=== PATIENT | female | born 1990 | race African-American/Black ===

== ENCOUNTER 2018-09-01 11:55 | Emergency (ER) | payer OTHER ==
[2018-09-01] MEDS ORDERED: ACETAMINOPHEN SOLN 325 MG/10.15 ML UDCUP PO ONE (12:54)
[2018-09-01] MEDS ORDERED: DEXAMETHASONE SOD PHOS INJ 10 MG/1 ML VIAL IM ONE (12:54)
--- NOTE | 2018-09-01 12:57 | ER Document Report ---
HPI - HPI Time Seen by Provider: 09/01/18 12:14 Pain Level: 5 Notes: Patient is an otherwise healthy 19-year-old female who presents the emergency department chief complaint of sore throat. Patient reports her throat has been hurting for at least 3 days. Patient denies any other symptoms to include fever, nausea, vomiting, diarrhea or congestion. - CONSTITUTIONAL Constitutional: REPORTS: Chills - EENT EENT: REPORTS: Sore Throat, Ear Pain - right ear - REPRODUCTIVE Reproductive: DENIES: : Past Medical History - General Information source: Patient - Social History Smoking Status: Never Smoker Frequency of alcohol use: None Drug Abuse: None Family History: Reviewed & Not Pertinent Patient has suicidal ideation: No Patient has homicidal ideation: No Renal/ Medical History: Denies: Hx Peritoneal Dialysis Vertical Provider Document - CONSTITUTIONAL Notes: GENERAL: Alert, interacts well. No distress. HEAD: Normocephalic, atraumatic. EYES: Pupils equal, round, and reactive to light. Extraocular movements intact. ENT: Oral mucosa moist, tongue midline. Oropharynx unremarkable, uvula normal, airway patent. Nares patent with mild nasal congestion, septum unremarkable, TMs normal, ear canals are normal. NECK: Trachea midline. No lymphadenopathy. LUNGS: Clear to auscultation bilaterally, no wheezes, rales, or rhonchi. No respiratory distress. Rare mild congested cough. HEART: Regular rate and rhythm. No murmur. Normal distal pulses and cap refill. ABDOMEN: Soft, non-tender. Non-distended. Bowel sounds present in all 4 quadrants. EXTREMITIES: Moves all 4 extremities spontaneously. No edema. No cyanosis. BACK: no cervical, thoracic, lumbar midline tenderness. No signs of trauma. NEUROLOGICAL: Alert, interactive, age appropriate verbal. SKIN: Warm, dry, normal turgor. No rashes or lesions noted. - INFECTION CONTROL TRAVEL OUTSIDE OF THE [place] IN LAST 30 DAYS: No Course - Re-evaluation Re-evalutation: 09/01/18 12:55 Rapid strep is negative. Patient will be given IM Decadron and p.o. Tylenol. - Vital Signs Vital signs: Temp Pulse Resp BP Pulse Ox 99.8 F 93 18 130/75 H 100 09/01/18 12:07 09/01/18 12:07 09/01/18 12:07 09/01/18 12:07 09/01/18 12:07 Discharge - Discharge Clinical Impression: Viral pharyngitis Condition: Stable Disposition: HOME, SELF-CARE Additional Instructions: SORE THROAT: Sore throats may be caused by viruses, bacteria, or fungi. Most are due to a virus, and must get better on their own. Bacterial sore throats, particularly those due to "strep," need treatment with antibiotics. If an antibiotic is prescribed, be sure to take the medication for a full 10 days. Failure to take the antibiotic can result in complications such as rheumatic fever. Sometimes, an injection of antibiotics is given instead of pills or liquid. This single "shot" is equal in effectiveness to the oral medication. To relieve symptoms, take acetaminophen for pain. Sip clear liquids frequently, or eat popsicles or ice chips. Anesthetic sprays or lozenges may help. Make sure the air in the room is not too dry. Avoid using decongestants or antihistamines. Call the doctor if there is no improvement in two days, or if you have difficulty breathing, increasing throat pain, high fever, rash, or frequent vomiting. STEROID MEDICATION: You have been given a medicine of the cortisone/steroid class. This medication is used to control inflammation or allergy. It is usually only given for a short period of time, until the acute process subsides. There are usually no side effects from short-term use of cortisone-like medications. Some persons feel an increased sense of well-being and are not sleepy at bedtime. Long-term use of cortisone medications is best avoided, unless required for a severe condition. If your condition does not remit, or relapses after the course of corticosteroid medication, you should consult your physician. FOLLOW-UP CARE: If you have been referred to a physician for follow-up care, call the physicians office for an appointment as you were instructed or within the next two days. If you experience worsening or a significant change in your symptoms, notify the physician immediately or return to the Emergency Department at any time for re-evaluation. Your rapid strep test today was negative. A throat culture will be sent. Someone will call you in the next 2-3 days if this is positive. In the meanwhile please use ibuprofen and/or Tylenol for any pain or inflammation. Drink beverages that will help soothe your throat. You may want to consider drinking some hot tea with honey. Return to the emergency department if you experience worsening symptoms and you are unable to swallow. Referrals: LAYNE LALA MD [Primary Care Provider] - Follow up as needed
[2018-09-01 13:05] VITALS: BP 139/86
== END 2018-09-01 13:07 | disposition home or self-care (01) ==
LOC: EDBD 11:55 → ER 11:55
DX: J02.8 Acute pharyngitis due to other specified organisms (principal); B97.89 Other viral agents as the cause of diseases classified elsewhere; H92.01 Otalgia, right ear; R09.81 Nasal congestion
CPT/HCPCS: 99283; 96372; 87070; 87880; 87077; J1100; J3490

== ENCOUNTER 2018-09-09 19:09 | Emergency (ER) | payer OTHER ==
--- NOTE | 2018-09-09 19:56 | ER Document Report ---
ED Medical Screen (RME) - General TRAVEL OUTSIDE OF THE [place] IN LAST 30 DAYS: No - General Chief Complaint: Lower Abdominal Pain Stated Complaint: LOWER ABDOMINAL PAIN/VAGINAL DISCHARGE Time Seen by Provider: 09/09/18 19:54 Primary Care Provider: LAYNE LALA MD [Primary Care Provider] - Follow up as needed Notes: 27 years old female presents today with vaginal discharge which is yellow white in color. And lower abdominal discomfort. ([facility] SARGENT) - Related Data Allergies/Adverse Reactions: No Known Allergies Allergy (Verified 09/09/18 19:12) Past Medical History Renal/ Medical History: Denies: Hx Peritoneal Dialysis - Vital signs Vitals: Temp Pulse Resp BP Pulse Ox 98.3 F 77 20 119/59 L 100 09/09/18 19:47 09/09/18 19:47 09/09/18 19:47 09/09/18 19:47 09/09/18 19:47 - Vital Signs Vital signs: Temp Pulse Resp BP Pulse Ox 98.3 F 77 20 119/59 L 100 09/09/18 19:47 09/09/18 19:47 09/09/18 19:47 09/09/18 19:47 09/09/18 19:47 - Laboratory Laboratory results interpreted by me: 09/09/18 21:09 Urine Protein 30 H Urine Urobilinogen 4.0 H Ur Leukocyte Esterase LARGE H Doctor's Discharge - Discharge Clinical Impression: Pelvic pain, Vaginal discharge Condition: Stable Disposition: HOME, SELF-CARE Additional Instructions: You are being treated for both pelvic infection and bacterial vaginosis. Complete treatment for bacterial vaginosis by taking the Flagyl as prescribed. Avoid sexual intercourse for 1 week. Any current partner also needs to be treated. Return if you worsen including fever, vomiting, severe worsening pain, or any other concerning symptoms. Prescriptions: Metronidazole [Flagyl 500 mg Tablet] 500 mg PO BID 7 Days #14 tablet Forms: Return to Work Referrals: LAYNE LALA MD [Primary Care Provider] - Follow up as needed
[2018-09-09 22:04] LABS: APPEARANCE,URINE CLOUDY; BILIRUBIN,URINE NEGATIVE (NEGATIVE); COLOR,URINE YELLOW; GLUCOSE, URINE NEGATIVE (NEGATIVE); KETONES,URINE NEGATIVE (NEGATIVE); LEUKOCYTE ESTERASE,URINE LARGE (NEGATIVE); NITRITE,URINE NEGATIVE (NEGATIVE); PROTEIN,URINE 30 mg/dL (NEGATIVE)
[2018-09-09 23:56] LABS: T.VAGINALIS (WET MOUNT) NO TRICHOMONAS SEEN
[2018-09-09 23:58] LABS: WBCS (WET MOUNT) 3+ WBCS SEEN; YEAST (WET MOUNT) NO YEAST SEEN
[2018-09-09 23:59] LABS: BACTERIA (WET MOUNT) 3+ BACTERIA SEEN; RBCS (WET MOUNT) NO RBCS SEEN
[2018-09-10] MEDS ORDERED: ONDANSETRON 4 MG TAB.RAPDIS PO ONE (00:09)
[2018-09-10] MEDS ORDERED: LIDOCAINE 1% INJ-PF (10 MG/ML) 30 ML SDV INJ ONE (00:09)
[2018-09-10] MEDS ORDERED: AZITHROMYCIN 250 MG TABLET PO ONE (00:09)
[2018-09-10] MEDS ORDERED: CEFTRIAXONE INJ 250 MG VIAL IM ONE (00:30)
[2018-09-10 00:52] VITALS: BP 116/63
[2018-09-10 01:47] LABS: CHLAM PCR NOT DETECTED (NOT DETECT); GON PCR NOT DETECTED (NOT DETECT)
--- NOTE | 2018-09-10 06:25 | ER Document Report ---
ED GI/ - General Chief Complaint: Lower Abdominal Pain Stated Complaint: LOWER ABDOMINAL PAIN/VAGINAL DISCHARGE Time Seen by Provider: 09/09/18 19:54 Primary Care Provider: LAYNE LALA MD [Primary Care Provider] - Follow up as needed Notes: Patient is a 27 year old female that comes to the Emergency Department for chief complaint of pelvic cramping and vaginal discharge for the past several days. Denies fever or chills. Reports a little bit of nausea but denies vomiting. She denies vaginal bleeding. States she had a positive home test although this was not definite. She states she might have been exposed to an STD and she was to be checked. She denies any daily medications. She has had 4 vaginal deliveries, denies any medical history otherwise. TRAVEL OUTSIDE OF THE [place] IN LAST 30 DAYS: No - Related Data Allergies/Adverse Reactions: No Known Allergies Allergy (Verified 09/09/18 19:12) Past Medical History - General Information source: Patient - Social History Smoking Status: Never Smoker Frequency of alcohol use: Rare Drug Abuse: None Lives with: Family Family History: Reviewed & Not Pertinent Patient has suicidal ideation: No Patient has homicidal ideation: No - Medical History Medical History: Negative Renal/ Medical History: Denies: Hx Peritoneal Dialysis Surgical Hx: Negative - Immunizations Immunizations up to date: Yes Hx Diphtheria, Pertussis, Tetanus Vaccination: Yes Review of Systems - Review of Systems Constitutional: No symptoms reported EENT: No symptoms reported Cardiovascular: No symptoms reported Respiratory: No symptoms reported Gastrointestinal: See HPI Genitourinary: See HPI Female Genitourinary: See HPI Musculoskeletal: No symptoms reported Skin: No symptoms reported Hematologic/Lymphatic: No symptoms reported Neurological/Psychological: No symptoms reported Physical Exam - Vital signs Vitals: Temp Pulse Resp BP Pulse Ox 98.3 F 77 20 119/59 L 100 09/09/18 19:47 09/09/18 19:47 09/09/18 19:47 09/09/18 19:47 09/09/18 19:47 - Notes Notes: GENERAL: Alert, interacts well. No acute distress. HEAD: Normocephalic, atraumatic. EYES: Pupils equal, round, and reactive to light. Extraocular movements intact. ENT: Oral mucosa moist, tongue midline. Oropharynx unremarkable. Airway patent. Nares patent, no nasal septal hematoma, TM's intact. NECK: Full range of motion. Supple. Trachea midline. LUNGS: Clear to auscultation bilaterally, no wheezes, rales, or rhonchi. No respiratory distress. HEART: Regular rate and rhythm. No murmur ABDOMEN: Mild generalized lower abdominal tenderness, nonspecific, no guarding. Non-distended. Bowel sounds present in all 4 quadrants. GENITOURINARY: Moderately large amount of whitish yellowish vaginal discharge, no cervical motion tenderness, no lesions, no concerning findings noted otherwise. Exam performed with Codi GARCIA at bedside. EXTREMITIES: Moves all 4 extremities spontaneously. No edema, normal radial and dorsalis pedis pulses bilaterally. No cyanosis. BACK: no cervical, thoracic, lumbar midline tenderness. No saddle anesthesia, normal distal neurovascular exam. NEUROLOGICAL: Alert and oriented x3. Normal speech. [cranial nerves II through XII grossly intact]. PSYCH: Normal affect, normal mood. SKIN: Warm, dry, normal turgor. No rashes or lesions noted. Course - Re-evaluation Re-evalutation: Patient is very well-appearing. She has generalized pelvic tenderness which is mild. She does have discharge consistent with pelvic infection on evaluation. No cervical motion tenderness, fever, vomiting, and patient is not ill- appearing. Unremarkable vital signs. Patency test is negative. Urinalysis nonspecific, patient has no dysuria. 3+ white blood cells and 3+ bacteria, unremarkable otherwise. Gonorrhea and Chlamydia pending. Discussed with patient. Decision was made to cover her for pelvic infection BV, discussed recommendations and precautions, discussed return precautions. Patient states satisfaction and agreement. Gonorrhea and Chlamydia negative. - Vital Signs Vital signs: Temp Pulse Resp BP Pulse Ox 98.4 F 77 18 116/63 100 09/10/18 00:51 09/09/18 19:47 09/10/18 00:51 09/10/18 00:51 09/10/18 00:51 - Laboratory Laboratory results interpreted by me: 09/09/18 21:09 Urine Protein 30 H Urine Urobilinogen 4.0 H Ur Leukocyte Esterase LARGE H Discharge - Discharge Clinical Impression: Pelvic pain, Vaginal discharge Condition: Stable Disposition: HOME, SELF-CARE Additional Instructions: You are being treated for both pelvic infection and bacterial vaginosis. Complete treatment for bacterial vaginosis by taking the Flagyl as prescribed. Avoid sexual intercourse for 1 week. Any current partner also needs to be treated. Return if you worsen including fever, vomiting, severe worsening pain, or any other concerning symptoms. Prescriptions: Metronidazole [Flagyl 500 mg Tablet] 500 mg PO BID 7 Days #14 tablet Forms: Return to Work Referrals: LAYNE LALA MD [Primary Care Provider] - Follow up as needed
== END 2018-09-10 00:54 | disposition home or self-care (01) ==
LOC: ER 19:09
DX: R10.2 Pelvic and perineal pain (principal); N89.8 Other specified noninflammatory disorders of vagina; R10.30 Lower abdominal pain, unspecified; R11.0 Nausea; Z20.2 Contact with and (suspected) exposure to infections with a predominantly sexual mode of transmission
CPT/HCPCS: 99283; 96372; 87210; 81025; 81001; 87491; 87591; S0119; J3490; J0696